=== PATIENT | female | born 1980 | race Caucasian/White ===

== ENCOUNTER → 2020-07-17 12:21 | Outpatient (CLI) | payer BC, SELFPAY ==
--- NOTE | ~2020-07-17 | MM_ITS ---
EXAMINATION: MM screening [facility] BI w eda HISTORY: Screening mammogram TECHNIQUE: Craniocaudal and mediolateral oblique 3-D tomosynthesis images were obtained and synthetic 2-D images were generated. CAD analysis was submitted and interpreted. COMPARISON: 05/04/2019 diagnostic right digital mammogram and complete right breast ultrasound 08/26/2018 bilateral digital screening mammogram BREAST PARENCHYMAL COMPOSITION: The breasts are heterogeneously dense, which may obscure small masses . FINDINGS: Stable circumscribed approximately 6.8 mm opacity in upper central right breast with partia l halo sign consistent with previously documented cyst (best demonstrated on MLO Tomosynthesis image 37/79). There is no evidence of suspicious mass, calcification, or architectural distortion to sugges t malignancy in either breast. There has been no suspicious interval change. IMPRESSION: 1. No mammographic evidence of malignancy. 2. Recommend routine screening mammography in one year. BI-RADS Category 2: Benign finding(s). Reviewed, dictated and finalized at location A. [employer]
== END ==
PROVIDERS: Visit Provider Obstetrics & Gynecology
DX: Z12.31 Encounter for screening mammogram for malignant neoplasm of breast (principal)
CPT/HCPCS: 77063; 77067

== ENCOUNTER 2020-08-27 14:14 | Outpatient (CLI) | payer BC, SELFPAY ==
--- NOTE | ~2020-08-27 | US_ITS ---
EXAMINATION: US transvaginal DATE: 08/27/2020 14:49 INDICATION: Abnormal uterine bleeding Comparison:CT dated 08/31/2015 TECHNIQUE: Multiple endovaginal sonographic images of the pelvis performed. FINDINGS: The uterus measures 8.3 x 4.1 x 4.7 cm. Anteriorly in the uterus there is a hypoechoic mass measuring 1.7 x 1.6 x 1.4 cm, consistent with uterine fibroid. The endometrial complex measures 8 mm . The right ovary measures 2.5 x 1.7 x 1.4 cm and the left ovary measures 2 x 1.5 x 1.8 cm. There are small follicles in each ovary. Normal doppler signal in both ovaries. There is no free fluid in the pelvis. There are no abnormal masses seen on either side. IMPRESSION: 1. Uterine fibroid anteriorly measuring 1.7 cm maximum dimension. Otherwise, unremarkable pelvic ultr asound. Reviewed, dictated and finalized at location A. IMPRESSION: 1. Uterine fibroid anteriorly measuring 1.7 cm maximum dimension. Otherwise, un remarkable pelvic ultrasound.
== END 2020-08-27 14:15 ==
LOC: MICIMG 14:15
PROVIDERS: Visit Provider Nurse Practitioner
DX: D25.9 Leiomyoma of uterus, unspecified (principal); N93.8 Other specified abnormal uterine and vaginal bleeding
CPT/HCPCS: 76830

== ENCOUNTER → 2020-10-18 03:29 | Outpatient (CLI) | payer BC, SELFPAY ==
[2020-10-18 19:50] LABS: SARS-CoV-2 RNA PCR Negative
== END ==
PROVIDERS: PCP Internal Medicine; Visit Provider Obstetrics & Gynecology Gynecology
DX: Z01.812 Encounter for preprocedural laboratory examination (principal); Z20.822 Contact with and (suspected) exposure to COVID-19
CPT/HCPCS: C9803; U0003; U0005

== ENCOUNTER 2020-10-21 00:13 | Day surgery (SDC) | payer BC, SELFPAY ==
[2020-10-09 13:09] VITALS: BMI 34.6
--- NOTE | 2020-10-21 07:20 | WPDHPUPDATE1 ---
History and Physical Update Update Date/Time: 10/21/20 07:20 History and Physical has been reviewed, including an updated exam of the patient. There are NO changes in the patient's condition. Risks, benefits, and alternatives have been discussed and questions answered. Patient agrees to proceed with procedure.
--- NOTE | 2020-10-21 07:20 | PM.HPGS ---
History of Present Illness History of Present Illness Consent: Risks, benefits, and alternatives have been discussed and questions answered. Patient agrees to proceed with procedure. Chief complaint: abnormal uterine bleeding Narrative: Jen Carmona is a 40 year old female with a several year history of abnormal uterine bleeding. Patient's prior physician recommended D&C hysteroscopy but the patient never schedule the surgery. Patient continues to have heavy cycle with large clots bleeding through her pad. Cycles are regular. It was recommended to proceed with hysteroscopy with D and C and possible MyoSure. Ultrasound does show a 1.7cm anterior fibroid. Risks infection, bleeding, perforation, and fluid imbalance were discussed with the patient. Possible pathology was also reviewed. The patient voices understanding and agrees to proceed. Review of Systems Review of Systems: Narrative: not repeated day of surgery; patient states no changes in status Musculoskeletal: Musculoskeletal: Reports back pain Endocrine: Endocrine: Reports flushing PMFSH Past Medical History Medical History (Updated 10/21/20 @ 07:24 by Vivian Ren MD) GERD (gastroesophageal reflux disease) HTN (hypertension) Surgical History Surgical History (Updated 10/21/20 @ 07:23 by Vivian Ren MD) H/O laparoscopy ovarian cyst removal Social History Social History Smoking packs per day: 0.5 Smoking cigarettes per day: 10.0 Years smoked: 20 Smoking pack-years: 10.00 Smoking status: Current every day smoker Tobacco type: cigarettes Alcohol intake: never Substance use: never Substance use type: does not use Living arrangements: with family Spiritual care concerns: No Meds Home Medications and Allergies Home Medications Medication Instructions Recorded Confirmed Type cetirizine 10 mg PO DAILY 10/09/20 10/09/20 History escitalopram oxalate 5 mg PO DAILY 10/09/20 10/09/20 History fluticasone propionate [Flonase] 1 spray INTRANASAL DAILY 10/09/20 10/09/20 History metoprolol tartrate 50 mg PO BID 10/09/20 10/09/20 History omeprazole 40 mg PO BID 10/09/20 10/09/20 History Allergies Allergy/AdvReac Type Severity Reaction Status Date / Time adhesive tape Allergy Mild Rash Verified 10/09/20 13:12 ANTIHISTAMINE Allergy Unknown Other Uncoded 10/09/20 13:12 Exam Const: General: healthy appearing and alert Orientation/consciousness: patient oriented x3 GI: GI Palp: Yes Soft to palpation, No Tenderness to palpation present (GI) and No Palpable mass present : External Female Exam: normal external appearance Speculum Exam - Vagina: normal appearance of the vagina and normal vaginal discharge Speculum Exam - Cervix: normal appearance of the cervix Bimanual exam- vagina & uterus: uterine size normal and consistency normal Bimanual Exam- Adnexa, other: normal adnexae and No adnexal tenderness Neuro: General: patient oriented x3 Assessment and Plan Assessment and plan (1) Menorrhagia: Code(s): N92.0 - Excessive and frequent menstruation with regular cycle Status: Acute Assessment and Plan: Plan to proceed with hysteroscopy and D&C and possible MyoSure (2) Fibroids: Code(s): D21.9 - Benign neoplasm of connective and other soft tissue, unspecified Status: Acute
[2020-10-21 08:33] VITALS: BP 132/90; PULSE 69; RESP 18; TEMP 35.9; O2SAT 99; BMI 34.4
[2020-10-21] MEDS: ACETAMINOPHEN 500 MG TABLET 1000 MG PO (08:38)
[2020-10-21] MEDS: LACTATED RINGERS 1,000 ML 30 ML IV CONT (08:53)
--- NOTE | 2020-10-21 09:08 | WPDANESEPPF ---
Anes - Initial Pre Proc Eval Procedure: Operation Date: 10/21/20 10:00 Proposed Procedures p Hysteroscopy Dilation and Curettage - Vivian Ren MD Date/Time: 10/21/20 09:08 Surgeon: Vivian Ren MD Pre Op Diagnosis: abnormal uterine bleeding Patient Data Age: 40 Gender: F Height: 1.65 m Weight: 93.8 kg Last Vital Signs Temp 35.9 C L 10/21/20 08:33 Pulse 69 10/21/20 08:33 Resp 18 10/21/20 08:33 BP 132/90 10/21/20 08:33 Pulse Ox 99 10/21/20 08:33 Allergies Allergy/AdvReac Type Severity Reaction Status Date / Time adhesive tape Allergy Mild Rash Verified 10/21/20 08:23 ANTIHISTAMINE Allergy Unknown Other Uncoded 10/21/20 08:23 Home Medications Medication Instructions Recorded Confirmed Type cetirizine 10 mg PO DAILY 10/09/20 10/21/20 History escitalopram oxalate 5 mg PO DAILY 10/09/20 10/21/20 History fluticasone propionate [Flonase] 1 spray INTRANASAL DAILY 10/09/20 10/21/20 History metoprolol tartrate 50 mg PO BID 10/09/20 10/21/20 History omeprazole 40 mg PO BID 10/09/20 10/21/20 History Patient hx anesthesia problems: none Family hx anesthesia problems: none [facility] Past Medical History Medical History (Updated 10/21/20 @ 08:38 by Laz Gonsales DO) Anxiety GERD (gastroesophageal reflux disease) HTN (hypertension) PONV (postoperative nausea and vomiting) Surgical History Surgical History (Updated 10/21/20 @ 07:23 by Vivian Ren MD) H/O laparoscopy ovarian cyst removal Social History Social History Smoking packs per day: 0.5 Smoking cigarettes per day: 10.0 Years smoked: 20 Smoking pack-years: 10.00 Smoking status: Current every day smoker Tobacco type: cigarettes Alcohol intake: never Substance use: never Substance use type: does not use Living arrangements: with family Spiritual care concerns: No Anes - Eval Final PreProcedure Day of Procedure 10/21/20 09:08 Patient weight: obese Heart: regular rate and rhythm Lungs: clear to auscultation and normal air movement Airway: Mallampati scale class II Neurological: alert and oriented Last oral intake: >/= 8 hours ASA classification: III Emergent: no Anesthetic plan: proceed Anesthesia type and monitoring: general GIVS and standard monitoring Informed Consent: The patient's anesthetic plan and its attendant risks and benefits were discussed with the patient/family/POA. Questions were solicited and answers provided to the satisfaction of the patient/family/POA.
[2020-10-21] MEDS: KETOROLAC 30 MG/ML VIAL (*BKC) IV PUSH (10:23)
--- NOTE | 2020-10-21 10:33 | W.PM.PROC2 ---
Procedure Note - Detailed Date of Procedure 10/21/20 Pre-op Diagnosis abnormal uterine bleeding Post-op Diagnosis same Procedure Performed D and C hysteroscopy Surgeon Vivian Ren MD Anesthesia MAC and local Findings Uterus sounds to 8cm and appears grossly normal Description of Procedure The patient was taken to the operating room and placed under anesthesia in the dorsal supine position. She was prepped and draped in usual sterile fashion. [place] speculum was placed in vagina and the cervix is grasped on the anterior lip with a tenaculum. Cervix was injected with 1% lidocaine in each quadrant. The uterus is sounded to 8cm. The cervix is serially dilated with Hegar. The diagnostic hysteroscope was placed with no abnormalities noted. The hysteroscope was removed and the medium sharp curette used to curette the endometrium until a good uterine cry was noted in all areas. Minimal material was obtained consistent with the then appearance of the endometrium. All instruments are removed and the patient was awakened from anesthesia. She was taken to the recovery room in stable condition. Sponge, needle, and instrument counts are correct per the OR staff. Estimated Blood Loss 5 Drains No Packing No Pathology yes (Endometrial curettings) Complications No immediate complications Condition stable Disposition PACU
[2020-10-21 10:35] VITALS: BP 104/65; PULSE 71; RESP 16; O2SAT 92
[2020-10-21 11:00] VITALS: BP 115/82; PULSE 60; RESP 16; O2SAT 93
[2020-10-21 11:25] VITALS: BP 117/80; PULSE 62; RESP 16
== END 2020-10-21 11:35 | disposition home or self-care (01) ==
PROVIDERS: PCP Internal Medicine; Visit Provider Obstetrics & Gynecology Gynecology
PROC: 0U5B8ZZ Destruction of Endometrium, Via Natural or Artificial Opening Endoscopic (ICD-10-PCS; CPT 58563; principal; 2020-10-21 10:00)
DX: N92.0 Excessive and frequent menstruation with regular cycle (principal); N85.8 Other specified noninflammatory disorders of uterus; F41.9 Anxiety disorder, unspecified; F17.210 Nicotine dependence, cigarettes, uncomplicated; E66.9 Obesity, unspecified; Z68.34 Body mass index [BMI] 34.0-34.9, adult; D21.9 Benign neoplasm of connective and other soft tissue, unspecified; I10 Essential (primary) hypertension; K21.9 Gastro-esophageal reflux disease without esophagitis
CPT/HCPCS: 58558; 88305; A9270; J1885; J2250; J2405; J2704; J3010; J7030; J7120

== ENCOUNTER 2020-12-30 00:24 | Day surgery (SDC) | payer BC, SELFPAY ==
[2020-12-25 11:24] VITALS: BMI 35.0
--- NOTE | 2020-12-30 07:21 | WPDHPUPDATE1 ---
History and Physical Update Update Date/Time: 12/30/20 07:21 History and Physical has been reviewed, including an updated exam of the patient. There are NO changes in the patient's condition. Risks, benefits, and alternatives have been discussed and questions answered. Patient agrees to proceed with procedure.
--- NOTE | 2020-12-30 07:21 | PM.HPGS ---
History of Present Illness History of Present Illness Consent: Risks, benefits, and alternatives have been discussed and questions answered. Patient agrees to proceed with procedure. Chief complaint: Menorrhagia Narrative: Jen Carmona is a 40 year old female with worsening cycles over the last year. Patient underwent D&C hysteroscopy which revealed benign test results and appearance. Options were reviewed for further treatment and the patient has elected to proceed with endometrial ablation with Swapna. Risks infection, bleeding, perforation, and failure were reviewed. The patient is informed that the procedure is not control and her has had a vasectomy. The patient voices understanding and agrees to proceed. Review of Systems Review of Systems: not repeated day of surgery; patient states no changes in status Musculoskeletal: Musculoskeletal: Reports back pain Endocrine: Endocrine: Reports flushing PMFSH Past Medical History Medical History (Updated 12/30/20 @ 07:24 by Vivian Ren MD) Anxiety GERD (gastroesophageal reflux disease) HTN (hypertension) (normal spontaneous vaginal delivery) x2 PONV (postoperative nausea and vomiting) Surgical History Surgical History (Updated 10/21/20 @ 07:23 by Vivian Ren MD) H/O laparoscopy ovarian cyst removal Social History Social History Smoking packs per day: 0.5 Smoking cigarettes per day: 10.0 Years smoked: 20 Smoking pack-years: 10.00 Smoking status: Never smoker Tobacco type: cigarettes Alcohol intake: never Substance use: never Substance use type: does not use Living arrangements: with family Spiritual care concerns: No Meds Home Medications and Allergies Home Medications Medication Instructions Recorded Confirmed Type cetirizine 10 mg PO DAILY 10/09/20 12/25/20 History escitalopram oxalate 5 mg PO DAILY 10/09/20 12/25/20 History fluticasone propionate [Flonase] 1 spray INTRANASAL DAILY 10/09/20 12/25/20 History metoprolol tartrate 50 mg PO BID 10/09/20 12/25/20 History omeprazole 40 mg PO BID 10/09/20 12/25/20 History Allergies Allergy/AdvReac Type Severity Reaction Status Date / Time adhesive tape AdvReac Mild Rash Verified 12/30/20 07:21 ANTIHISTAMINE Allergy Intermediate Palpitation Uncoded 12/25/20 11:05 s Exam Const: General: healthy appearing and alert Orientation/consciousness: patient oriented x3 GI: GI Palp: Yes Soft to palpation, No Tenderness to palpation present (GI) and No Palpable mass present : External Female Exam: normal external appearance Speculum Exam - Vagina: normal appearance of the vagina and normal vaginal discharge Speculum Exam - Cervix: normal appearance of the cervix Bimanual exam- vagina & uterus: uterine size normal and consistency normal Bimanual Exam- Adnexa, other: normal adnexae and No adnexal tenderness Neuro: General: patient oriented x3 Assessment and Plan Assessment and plan (1) Fibroids: Code(s): D21.9 - Benign neoplasm of connective and other soft tissue, unspecified Status: Acute (2) Menorrhagia: Code(s): N92.0 - Excessive and frequent menstruation with regular cycle Status: Acute Assessment and Plan: plan to proceed with endometrial ablation with Swapna
[2020-12-30] MEDS: ACETAMINOPHEN 500 MG TABLET 1000 MG PO (07:23)
[2020-12-30 07:27] VITALS: BP 122/82; PULSE 64; RESP 20; TEMP 36.5; O2SAT 100
--- NOTE | 2020-12-30 07:40 | WPDANESEPPF ---
Anes - Initial Pre Proc Eval Procedure: Operation Date: 12/30/20 09:00 Proposed Procedures p Hysteroscopy, Endometrial Swapna Ablation - Vivian Ren MD Date/Time: 12/30/20 07:40 Surgeon: Vivian Ren MD Pre Op Diagnosis: Menorrhagia Patient Data Age: 40 Gender: F Height: 1.64 m Weight: 94.09 kg Allergies Allergy/AdvReac Type Severity Reaction Status Date / Time adhesive tape AdvReac Mild Rash Verified 12/30/20 07:21 ANTIHISTAMINE Allergy Intermediate Palpitation Uncoded 12/25/20 11:05 s Home Medications Medication Instructions Recorded Confirmed Type cetirizine 10 mg PO DAILY 10/09/20 12/30/20 History escitalopram oxalate 5 mg PO DAILY 10/09/20 12/30/20 History fluticasone propionate [Flonase] 1 spray INTRANASAL DAILY 10/09/20 12/30/20 History metoprolol tartrate 50 mg PO BID 10/09/20 12/30/20 History omeprazole 40 mg PO BID 10/09/20 12/30/20 History Patient hx anesthesia problems: none Family hx anesthesia problems: none PMFSH Past Medical History Medical History Anxiety GERD (gastroesophageal reflux disease) HTN (hypertension) (normal spontaneous vaginal delivery) x2 PONV (postoperative nausea and vomiting) Surgical History Surgical History (Updated 10/21/20 @ 07:23 by Vivian Ren MD) H/O laparoscopy ovarian cyst removal Social History Social History Smoking packs per day: 0.5 Smoking cigarettes per day: 10.0 Years smoked: 20 Smoking pack-years: 10.00 Smoking status: Never smoker Tobacco type: cigarettes Alcohol intake: never Substance use: never Substance use type: does not use Living arrangements: with family Spiritual care concerns: No Anes - Eval Final PreProcedure Day of Procedure 12/30/20 07:40 Patient weight: obese Heart: regular rate and rhythm Lungs: clear to auscultation Airway: Mallampati scale class II Neurological: alert and oriented Last oral intake: >/= 8 hours ASA classification: III Emergent: no Anesthetic plan: proceed Anesthesia type and monitoring: general GIVS and standard monitoring Informed Consent: The patient's anesthetic plan and its attendant risks and benefits were discussed with the patient/family/POA. Questions were solicited and answers provided to the satisfaction of the patient/family/POA.
[2020-12-30] MEDS: LACTATED RINGERS 1,000 ML 30 ML IV CONT (07:50)
[2020-12-30 09:23] VITALS: BP 104/69; PULSE 70; RESP 12; O2SAT 94
--- NOTE | 2020-12-30 09:24 | W.PM.PROC2 ---
Procedure Note - Detailed Date of Procedure 12/30/20 Pre-op Diagnosis Menorrhagia Post-op Diagnosis same Procedure Performed Swapna ablation Surgeon iVvian Ren MD Anesthesia MAC and local Findings secretory endometrium Description of Procedure The patient is taken to the operating room and placed under anesthesia in the dorsal lithotomy position. She was prepped and draped in the usual sterile fashion. [place] speculum was placed in the vagina and the cervix grasped on the anterior lip with a tenaculum. Cervix was injected in each quadrant with 1% lidocaine. Cervix was then serially dilated with Hegars. Diagnostic hysteroscope is placed with the stated findings. Hysteroscope was removed and the ablation device opened and placed. Cavity assessment passed on the 1st attempt in treatment cycle lasted the full 2minutes. The ablation device is removed and the hysteroscope replaced with a good ablation effect noted. All instruments are removed. Patient is taken to recovery in stable condition. Sponge, needle, and instrument counts are correct per the OR staff. Estimated Blood Loss 5 Drains No Packing No Pathology none sent Complications No immediate complications Condition stable Disposition PACU
[2020-12-30] MEDS: oxyCODONE HCL (*CRX) 5 MG TAB IR PO (09:48)
[2020-12-30 09:53] VITALS: BP 110/67; PULSE 68; RESP 12; O2SAT 93
[2020-12-30 10:05] VITALS: BP 105/75; PULSE 60; RESP 12
== END 2020-12-30 10:15 | disposition home or self-care (01) ==
PROVIDERS: PCP Internal Medicine; Visit Provider Obstetrics & Gynecology Gynecology
PROC: 0U5B8ZZ Destruction of Endometrium, Via Natural or Artificial Opening Endoscopic (ICD-10-PCS; CPT 58563; principal; 2020-12-30 09:00)
DX: N92.0 Excessive and frequent menstruation with regular cycle (principal); F41.9 Anxiety disorder, unspecified; I10 Essential (primary) hypertension; K21.9 Gastro-esophageal reflux disease without esophagitis; F17.210 Nicotine dependence, cigarettes, uncomplicated; E66.9 Obesity, unspecified; Z68.35 Body mass index [BMI] 35.0-35.9, adult
CPT/HCPCS: 58563; A9270; J1100; J2250; J2405; J2704; J3010; J7030; J7120

== ENCOUNTER → 2021-04-01 11:46 | Outpatient (CLI) | payer BC, SELFPAY ==
--- NOTE | ~2021-04-01 | US_ITS ---
EXAMINATION: US thyroid DATE: 04/01/2021 12:06 INDICATION: Nontoxic goiter, unspecified. TECHNIQUE: Multiple ultrasound images of the thyroid were obtained. COMPARISON: None. FINDINGS: The right thyroid lobe measures 5.5 x 1.4 x 1.4 cm. The left thyroid lobe measures 4.9 x 1.4 x 1.5 c m. In the left thyroid lobe, there is a 4 mm nodule. IMPRESSION: 1. Small thyroid nodule, likely not clinically significant. No follow-up is needed. Reviewed, dictated and finalized at location B. [employer] IMPRESSION: 1. Small thyroid nodule, likely not clinically significant. No follow-up is nee ded.
== END ==
PROVIDERS: Visit Provider Internal Medicine Endocrinology, Diabetes & Metabolism
DX: E04.9 Nontoxic goiter, unspecified (principal)
CPT/HCPCS: 76536

== ENCOUNTER → 2022-12-18 11:14 | Outpatient (CLI) | payer BC, OTHER, SELFPAY ==
--- NOTE | ~2022-12-18 | US_ITS ---
EXAMINATION: US pelvic complete DATE: 12/18/2022 11:34 INDICATION: Abnormal uterine bleeding. Pelvic pain. TECHNIQUE: Multiple transabdominal sonographic images of the pelvis were obtained. COMPARISON: None. FINDINGS: The uterus measures 6.7 x 3.4 x 4.9 cm. No significant interval change in a 2.0 x 1.5 x 1.4 cm slight ly hyperechoic fibroid in the anterior uterine body. The endometrial complex measures 5 mm in thickne ss. The right ovary measures 2.1 x 1.7 x 2.6 cm. The left ovary measures 2.4 x 1.4 x 2.3 cm. There is normal vascular flow in the ovaries. There is no free fluid in the pelvis. IMPRESSION: 1. 2.0 cm anterior uterine fibroid. Otherwise unremarkable pelvic ultrasound. Reviewed, dictated and finalized at location B.
== END ==
PROVIDERS: PCP Nurse Practitioner; Visit Provider Nurse Practitioner
DX: D25.9 Leiomyoma of uterus, unspecified (principal); N93.8 Other specified abnormal uterine and vaginal bleeding; R10.2 Pelvic and perineal pain
CPT/HCPCS: 76856

== ENCOUNTER 2024-02-24 16:06 | Emergency (ER) | payer BC, OTHER, SELFPAY ==
--- NOTE | ~2024-02-24 | CT_ITS ---
EXAMINATION: CT abdomen pelvis w con DATE: 02/24/2024 20:23 INDICATION: Lower abdominal pain. Diverticulitis. TECHNIQUE: Computed tomography (CT) of the abdomen and pelvis was performed with 100 mL Omnipaque 350 intravenous contrast. Automated exposure control and iterative reconstruction technique were employe d. The dose-length product was 1167.05 mGy-cm. COMPARISON: CT abdomen and pelvis 08/31/2015, pelvis ultrasound 12/18/2022 FINDINGS: The visualized portions of the lung bases demonstrate mild atelectasis. No pleural effusion . The heart size is normal. No pericardial effusion. There are cysts in the liver measuring up to 5 m m. The gallbladder, spleen, pancreas, adrenal glands, and left kidney are normal. There is an [address] in right kidney. Left-sided hydrosalpinx is noted. There is a 5.4 cm cyst in left ovary. There are no dilated loops of bowel. The appendix is normal. There is fat stranding around an epiploic appenda ge of sigmoid colon, consistent with epiploic appendagitis. There are no pathologically enlarged lymp h nodes. There is physiologic fluid in the pelvis. There is severe lumbar spondylosis and mild thorac ic spondylosis. IMPRESSION: 1. Epiploic appendagitis of sigmoid colon. 2. 5.4 cm cyst in left ovary, likely benign. Pelvis ultrasound is recommended in one year. 3. Left-sided hydrosalpinx. Reviewed, dictated and finalized at location A. IMPRESSION: 1. Epiploic appendagitis of sigmoid colon. 2. 5.4 cm cyst in left ovary, likely benign. Pelvis ultrasound is recommended i n one year. 3. Left-sided hydrosalpinx.
[2024-02-24 16:10] VITALS: BP 147/80; PULSE 77; RESP 16; TEMP 36.6; O2SAT 99
--- NOTE | 2024-02-24 18:30 | ED.ABDPAIN ---
HPI - Abdominal Pain General Chief Complaint: Abdominal Pain Stated Complaint: abd pain Time Seen by Provider: 02/24/24 16:57 History of Present Illness HPI narrative: Patient is a 43-year-old female who presents to the ER with severe lower abdominal pain. She reports one week ago she went to her primary care provider with stomach cramps and diarrhea. He did an abdominal CT scan and found she had diverticulitis. He put her on Flagyl TID, but pt has only been taking it BID. Patient's symptoms started to get better but yesterday she began experiencing significant lower abdominal pain. She reports it started at her umbilicus and then radiated down to both lower quadrants of her abdomen. Patient reports she has been drinking more water since her diverticulitis diagnosis so she thinks this is what she has been urinating more. Patient denies burning with urination and reports her stools have become more formed with her last 1 being at noon today. Patient reports the pain is constant and rates it at a 7 to 8/10. She reports taking 1 dose of Tylenol at home to help control the pain. Patient has a history of ovarian cyst and fibroids. She denies chest pain, shortness a breath, or signs/symptoms of illness. Related Data Home Medications Medication Instructions Recorded Confirmed cetirizine 10 mg tablet 10 mg PO DAILY 10/09/20 12/30/20 escitalopram oxalate 10 mg tablet 5 mg PO DAILY 10/09/20 12/30/20 fluticasone propionate 50 1 spray intranasal DAILY 10/09/20 12/30/20 mcg/actuation nasal spray,suspension metoprolol tartrate 50 mg tablet 50 mg PO BID 10/09/20 12/30/20 omeprazole 40 mg capsule,delayed 40 mg PO BID 10/09/20 12/30/20 release Allergies Allergy/AdvReac Type Severity Reaction Status Date / Time amoxicillin Allergy Diarrhea Verified 02/24/24 16:09 adhesive tape AdvReac Mild Rash Verified 02/24/24 16:09 ANTIHISTAMINE Allergy Intermediate Palpitation Uncoded 12/25/20 11:05 s Review of Systems Review of Systems: All systems reviewed & are unremarkable except as noted in HPI and below PMFSH Past Medical History Medical History Anxiety GERD (gastroesophageal reflux disease) HTN (hypertension) (normal spontaneous vaginal delivery) x2 PONV (postoperative nausea and vomiting) Surgical History Surgical History H/O laparoscopy ovarian cyst removal Social History Social History Smoking packs per day: 0.5 Smoking cigarettes per day: 10.0 Years smoked: 20 Smoking pack-years: 10.00 Smoking status: Never smoker Tobacco type: cigarettes Alcohol intake: never Substance use: never Substance use type: does not use Living arrangements: with family Spiritual care concerns: No Exam Narrative: GENERAL: Well appearing, well-nourished, non-toxic, in no acute distress. HEAD: Normocephalic, atraumatic. NECK: Supple. No adenopathy, no masses. RESPIRATORY: Airway patent, respirations nonlabored. Clear to auscultation bilaterally, no rales, rhonchi, wheezing. CARDIOVASCULAR: Regular rate and rhythm without murmurs, rubs, or gallops. Peripheral pulses 2+ and equal bilaterally. ABDOMINAL: Soft, extreme lower quadrant tenderness that increases with palpation, nondistended, no hepatosplenomegaly. Normoactive BS. MUSCULOSKELETAL: Moves all extremities. Strength/ROM intact without gross deformities. SKIN: Warm, dry, normal color. No rashes. NEURO: A&O X3. Speech clear. Cranial nerves II-XII grossly intact. Steady gait. No ataxic movements. PSYCHIATRIC: Appropriate mood and affect. Normal interaction. Course Vital Signs Vital signs: Vital Signs Temperature 36.6 C 02/24/24 16:10 Pulse Rate 77 02/24/24 16:10 Respiratory Rate 16 02/24/24 16:10 Blood Pressure 147/80 H 02/24/24 16:10 Pulse Oxime
[2024-02-24] MEDS: SODIUM CHLORIDE 0.9% IV 1,000 ML 999 ML IV CONT (19:03)
[2024-02-24 19:04] LABS: Basophils Percent Auto 0.3 % (0.2-1.2); Eosinophils Absolute Auto 0.1 K/mm3 (0-0.3); Eosinophils Percent Auto 0.4 % (0-4.4); Hematocrit 40.5 % (37.0-47.0); Hemoglobin 13.5 g/dL (12.0-15.0); Immature Granulocyte Absolute 0.04 K/mm3 (0.00-0.031); Immature Granulocyte Percent A 0.3 % (0-0.5); Lymphocytes Absolute Auto 2.49 K/mm3 (0.9-3.2); Lymphocytes Percent Auto 19.6 % (18.3-44.2); Mean Corpuscular HGB Conc 33.3 g/dl (32-36); Mean Corpuscular Hemoglobin 30.8 pg (26-34); Mean Corpuscular Volume 92.5 fl (80-100); Mean Platelet Volume 10.9 fl (7.4-10.4); Monocytes Absolute Auto 0.9 K/mm3 (0.1-0.6); Neutrophils Absolute Auto 9.2 K/mm3 (1.3-6.7); Neutrophils Percent Auto 72.4 % (45.5-73.1); Platelet Count Result 337 k/mm3 (150-375); Red Blood Count 4.38 M/mm3 (4.2-5.4); Red Cell Distribution Width 13.4 % (11.5-14.5); White Blood Count 12.7 K/mm3 (4.5-10.0)
[2024-02-24 19:06] LABS: Lactic Acid Reflex 1.1 mmol/L (0.7-2.0)
[2024-02-24] MEDS: ONDANSETRON INJ 4 MG/2 ML VIAL IV PUSH (19:06)
[2024-02-24 19:07] LABS: Alanine Aminotransferase 15 U/L (6-35); Albumin Level 4.1 g/dL (3.5-5.1); Alkaline Phosphatase 110 U/L (38-126); Anion Gap 10 mmol/L (4-12); Aspartate Amino Transferase 21 U/L (14-36); Bilirubin,Total 0.5 mg/dL (0.2-1.3); Blood Urea Nitrogen 6 mg/dL (7-17); Carbon Dioxide 22 mmol/L (22-30); Chloride 104 mmol/L (98-107); Estimated CRCL calculation 154 ml/min; Estimated Glomerular Filt Rate > 60; Glucose 107 mg/dL (65-110); Lipase 46 U/L (23-300); Potassium 3.9 mmol/L (3.4-5.0); Sodium 136 mmol/L (137-145)
[2024-02-24] MEDS: FAMOTIDINE 20 MG/2 ML VIAL IV PUSH (19:09)
[2024-02-24] MEDS: PANTOPRAZOLE SODIUM IV 40 MG VIAL IV PUSH (19:15)
[2024-02-24] MEDS: MORPHINE SULFATE (*CRX) 4 MG/ML INJ 2 MG IV PUSH (19:15)
[2024-02-24 19:17] LABS: INR 1.1
[2024-02-24 19:18] LABS: Troponin I < 0.012 ng/mL (0.000-0.034)
[2024-02-24 19:22] LABS: Add Urine Microscopic? YES; Appearance Urine Clear (Clear); Bacteria Urine Rare /hpf; Bilirubin Urine Negative (Negative); Blood Urine Negative (Negative); Color Urine Yellow (Yellow); Glucose Urine UA Negative (Negative); Ketones Urine Trace mg/dL (Negative); Leukocyte Esterase Ur 1+ LEU/UL (Negative); Nitrate Urine Negative (Negative); Non Pathogenic Casts 0-2; Protein Urine Negative (Negative); RBC Urine 0-2 /hpf (0-2); Specific Grav Ur 1.006 (1.001-1.035); Squamous Epithelial Cell Urine Occasional /hpf (Few); Urobilinogen Urine 0.2 mg/dL (<2.0); pH Urine 7.5 (5.0-9.0)
[2024-02-24 20:03] LABS: Pregnancy On Board Control Positive; Urine Pregnancy Test Negative
[2024-02-24 20:07] VITALS: BP 130/86; PULSE 58; RESP 18; O2SAT 100
[2024-02-24] MEDS: HYDROcodone/acetaminophen (*CRX) 5-325 MG TABLET 1 TAB PO (21:49)
[2024-02-24 21:51] VITALS: BP 142/90; PULSE 65; RESP 18; O2SAT 98
== END 2024-02-24 21:56 | disposition home or self-care (01) ==
PROVIDERS: Emergency Provider Registered Nurse; PCP Internal Medicine
DX: N39.0 Urinary tract infection, site not specified (principal); K63.89 Other specified diseases of intestine; N83.202 Unspecified ovarian cyst, left side; I10 Essential (primary) hypertension; K21.9 Gastro-esophageal reflux disease without esophagitis; F17.210 Nicotine dependence, cigarettes, uncomplicated; N70.11 Chronic salpingitis
CPT/HCPCS: 36415; 74177; 80053; 81001; 81025; 83605; 83690; 84484; 85025; 85610; 85730; 87040; 87077; 87086; 87186; 96365; 96375; 99284; A9270; J0696; J2270; J2405; J2470; J7030; Q9967

== ENCOUNTER 2024-03-02 14:35 | Outpatient (CLI) | payer BC, OTHER, SELFPAY ==
--- NOTE | ~2024-03-02 | US_ITS ---
EXAMINATION: US transvaginal INDICATION: Left ovarian cyst. Comparison:Ultrasound dated 12/18/2022 TECHNIQUE: Multiple transabdominal and endovaginal sonographic images of the pelvis performed. FINDINGS: The uterus measures 8.2 x 3.7 x 4.3 cm. There is a small uterine fibroid measuring 1 cm. Th e endometrial complex measures 3 mm. The right ovary measures 2.2 x 1.4 x 1.7 cm and the left ovary measures 6.1 x 6.5 x 6.1 cm. There is a simple left ovarian cyst measuring 4.6 cm. There are small follicles in each ovary. Normal doppler signal in both ovaries. There is no free fluid in the pelvis. There are no abnormal masses seen on either side. IMPRESSION: 1. Simple left ovarian cyst measuring 4.6 cm. 2: Small 1 cm uterine fibroid. Reviewed, dictated and finalized at location B.
== END 2024-03-02 14:36 | disposition home or self-care (01) ==
LOC: MICIMG 14:35
PROVIDERS: PCP Obstetrics & Gynecology Gynecology; Visit Provider Obstetrics & Gynecology Gynecology
DX: N83.202 Unspecified ovarian cyst, left side (principal); D25.9 Leiomyoma of uterus, unspecified
CPT/HCPCS: 76830

== ENCOUNTER 2024-03-02 15:05 | Outpatient (CLI) | payer BC, OTHER, SELFPAY ==
[2024-03-02 15:40] LABS: Add Urine Microscopic? YES; Appearance Urine Clear (Clear); Bacteria Urine None Seen /hpf; Bilirubin Urine Negative (Negative); Blood Urine Negative (Negative); Color Urine Yellow (Yellow); Glucose Urine UA Negative (Negative); Ketones Urine Negative (Negative); Leukocyte Esterase Ur 1+ LEU/UL (Negative); Need Manual Microscopic Reviewed; Nitrate Urine Negative (Negative); Non Pathogenic Casts 0-2; Protein Urine Negative (Negative); RBC Urine 0-2 /hpf (0-2); Specific Grav Ur 1.004 (1.001-1.035); Squamous Epithelial Cell Urine Occasional /hpf (Few); Urobilinogen Urine 0.2 mg/dL (<2.0); WBC Urine 0-5 /hpf (0-3)
== END 2024-03-02 15:06 | disposition home or self-care (01) ==
PROVIDERS: PCP Obstetrics & Gynecology Gynecology; Visit Provider Internal Medicine
DX: N83.209 Unspecified ovarian cyst, unspecified side (principal)
CPT/HCPCS: 81001; 87086